=== PATIENT | female | born 1945 ===

== ENCOUNTER 2018-10-28 12:45 | Inpatient (IN) | payer OTHER ==
[~2018-10-28] VITALS: Ht 162.6 cm; Wt 68.0 kg
[2018-10-28] MEDS ORDERED: COZAAR50 MG PO (14:01)
[2018-10-28] MEDS ORDERED: SYNTHROID75 MCG PO (14:01)
[2018-10-28] MEDS ORDERED: HYDRODIURIL12.5 MG PO (14:01)
== END 2018-11-01 08:00 | disposition home or self-care (01) | DRG 741 ==
LOC: OB/GYN 10-31 05:30 → RECOVERY 10-31 05:30 → O/R 10-31 05:30 → CIR.AMB 10-31 06:00 → O/R 10-31 07:00 → EDSTATUS 10-31 12:45 → RECOVERY 10-31 12:45 → OB/GYN 10-31 15:53 → O/R 10-31 15:53 → CIR.AMB 11-01 08:00 → O/R 11-01 08:00 → OB/GYN 11-01 11:03
PROVIDERS: ADMIT Obstetrics & Gynecology Gynecologic Oncology
PROC: 0UT24ZZ Resection of Bilateral Ovaries, Percutaneous Endoscopic Approach (ICD-10-PCS; 2018-10-31)
PROC: 0UT74ZZ Resection of Bilateral Fallopian Tubes, Percutaneous Endoscopic Approach (ICD-10-PCS; 2018-10-31)
PROC: 0UT94ZZ Resection of Uterus, Percutaneous Endoscopic Approach (ICD-10-PCS; principal; 2018-10-31 12:30)
DX: C54.1 Malignant neoplasm of endometrium (principal)